=== PATIENT | female | born 1965 | race Caucasian/White ===

== ENCOUNTER 2021-01-15 19:48 | Inpatient (IN) | payer OTHER ==
[~2021-01-15] VITALS: Ht 165.1 cm; Wt 72.6 kg
[2021-01-15 20:10] LABS: Hematocrit 38.4 % (33.0-51.0); Hemoglobin 12.4 g/dL (11.5-16.0); Mean Corpuscular HGB 32.2 pg (26.0-34.0); Mean Corpuscular HGB Conc 32.3 g/dL (31.5-36.5); Mean Corpuscular Volume 100 fL (80-100); Mean Platelet Volume 10.3 fL (9.1-12.4); Platelet Count 317 K/mm3 (150-400); RDW Coefficient Variation 13.1 % (11.7-14.2); RDW Standard Deviation 48.4 fL (35.1-46.3); Red Blood Cell Count 3.85 M/mm3 (3.80-5.20); White Blood Cell Count 10.35 K/mm3 (4.00-11.30)
[2021-01-15 20:23] LABS: Alanine Aminotransfer (ALT/SGP 25 U/L (12-78); Albumin, Blood 3.7 g/dL (3.4-5.0); Albumin/Globulin Ratio 1.2 (0.8-1.8); Alk Phos 76 U/L (50-136); Anion Gap 4 mmol/L (6-16); Aspartate Aminotrans (AST/SGOT 18 U/L (12-37); Bilirubin, Total 0.3 mg/dL (0.1-1.0); Blood Urea Nitrogen 12 mg/dL (8-24); Bun/Creatinine Ratio 14.3 (12.0-20.0); CO2, Blood 27 mmol/L (21-32); Calcium, Blood 9.1 mg/dL (8.5-10.1); Chloride, Blood 109 mmol/L (98-108); Creatinine, Blood 0.84 mg/dL (0.40-1.00); Glomerular Filtration Rate >60 (60-); Glucose, Blood 135 mg/dL (70-99); Potassium, Blood 3.8 mmol/L (3.5-5.5); Sodium, Blood 140 mmol/L (136-145); Total Protein, Blood 6.7 g/dL (6.4-8.2)
[2021-01-15 20:35] LABS: BASOPHILS PERCENT MAN 0 % (0-2); EOSINOPHILS PERCENT MAN 2 % (0-6); LYMPHOCYTES % ATYPICAL MANUAL 3 % (0-0); LYMPHOCYTES ABSOLUTE MAN 4.34 K/mm3 (0.84-5.20); LYMPHOCYTES PERCENT MAN 39 % (21-46); METAMYELOCYTE PERCENT MAN 1 % (0-0); MONOCYTES ABSOLUTE MAN 0.62 K/mm3 (0.16-1.47); MONOCYTES PERCENT MAN 6 % (4-13); NEUTROPHILS ABSOLUTE MAN 5.07 K/mm3 (1.96-9.15); SEG NEUTROPHILS PERCENT MAN 49 % (41-73); TOTAL CELLS COUNTED 100
[2021-01-15] MEDS ORDERED: LAMO100 PO ×2 (20:38→20:39)
[2021-01-15] MEDS ORDERED: Lithium Carbon450 MG PO (20:39)
[2021-01-15] MEDS ORDERED: LEVSOD100 PO (20:39)
[2021-01-16 01:12] LABS: SARS-Cov-2 (COVID-19) PCR, MMC NEGATIVE (NEGATIVE)
--- NOTE | 2021-01-16 07:45 | NUR ---
SHIFT SUMMARY: HUYEN IS A&OX4. VSS, NO ACUTE EVENTS OVERNIGHT. SHE IS A ONE PERSON ASSIST TO THE BATHROOM. ASPEN C-COLLAR PLACED THIS AM. MULTIPLE ABRASIONS, SKIN TEARS, ETC. SHE IS TOLERATING PO INTAKE WITH SOME NAUSEA WHICH SHE REPORTS IS IMPROVED WITH ADMINISTRATION OF ZOFRAN. SHE IS LYING IN BED WITH THE CALL LIGHT IN REACH. REPORT GIVEN TO DAY SHIFT RN.
--- NOTE | 2021-01-16 17:56 | NUR ---
SHIFT SUMMARY PT A&OX4, VSS, PAIN MANAGED WITH 5 MG OXY Q3P AND TORADOL. ELADIA PO. VOIDING WELL, SHOWERED TODAY, AMB SBA TO BRP, UP TO CHAIR. WILL REPORT TO ONCOMING BOBBI RN.
--- NOTE | 2021-01-17 05:48 | NUR ---
SHIFT SUMMARY: HUYEN IS A&OX4. VSS, NO ACUTE EVENTS OVERNIGHT. SHE IS A ONE PERSON STANDBY ASSIST TO THE BEDSIDE COMMODE/BATHROOM, TOLERATING PO INTAKE WELL, URINATING WITHOUT DIFFICULTY. SHE REPORTS GOOD PAIN CONTROL WITH THE TORADOL AND NORCO. SHE IS LYING IN BED WITH THE CALL LIGHT IN REACH. WILL REPORT TO DAY SHIFT RN.
[2021-01-17] MEDS ORDERED: HYDR1TAB94 PO (10:09)
--- NOTE | 2021-01-17 11:06 | NUR ---
DISCHARGE PT IS A/O X4, IND/SBA IN ROOM. PT TOLERATING PO INTAKE AND VOIDING. USING C-COLLAR AND L ARM SLING. PAIN MANAGED WITH PO PAIN MED PER ORDERS. DC INSTRUCTIONS REVIEWED WITH PT; REPORTS NO QUESTIONS OR CONCERNS. SCRIPT FOR NORCO SENT WITH PT, INSTRUCTIONS SENT WITH PT. PERSONAL BELONGINGS RETURNED. PT SENT WITH C-COLLAR AND SLING. PT ASSISTED IN DRESSING. IV'S DC'D WNL. MEDICATED WITH NORCO PRIOR TO DISCHARGE.
--- NOTE | 2021-01-17 11:11 | NUR ---
DISCHARGED AT 1110. WHEELCHAIR RIDE OUT TO VEHICLE.
== END 2021-01-17 11:15 | disposition home or self-care (01) | DRG 200 ==
LOC: ER 19:48 → SURS 19:49 → EDBD 01-16 14:37 → SURS 01-16 15:39 → ER 01-16 15:39 → SURS 01-17 11:15
PROVIDERS: Emergency Medicine; ADMIT Surgery
PROC: 0HQ0XZZ Repair Scalp Skin, External Approach (ICD-10-PCS; principal; 2021-01-15)
PROC: 0HQ3XZZ Repair Left Ear Skin, External Approach (ICD-10-PCS; 2021-01-15)
PROC: 0HQ1XZZ Repair Face Skin, External Approach (ICD-10-PCS; 2021-01-15)
DX: S27.0XXA Traumatic pneumothorax, initial encounter (principal); S12.301A Unspecified nondisplaced fracture of fourth cervical vertebra, initial encounter for closed fracture; S12.401A Unspecified nondisplaced fracture of fifth cervical vertebra, initial encounter for closed fracture; S22.32XA Fracture of one rib, left side, initial encounter for closed fracture; Z20.822 Contact with and (suspected) exposure to COVID-19; S01.01XA Laceration without foreign body of scalp, initial encounter; S01.511A Laceration without foreign body of lip, initial encounter; V03.10XA Pedestrian on foot injured in collision with car, pick-up truck or van in traffic accident, initial encounter; Y92.410 Unspecified street and highway as the place of occurrence of the external cause
CPT/HCPCS: 12002; 12011; 70450; 70486; 71045; 71046; 71260; 72125; 72170; 74177; 80053; 85025; 93005; 93010; 96372; 96374-59; 96375-59; 96376; 96376-59; 99285-25; A9270; G0378; J1170; J1650; J1885; J2270; J2405; J3010; Q9967; U0004